=== PATIENT | female | born 1970 | race Caucasian/White ===

== ENCOUNTER → 2017-03-09 | Outpatient (CLI) | payer OTHER ==
[~2017-03-09] MED LIST: 'CLONIDINE0.1 MG PO; ANAPROX DS550 MG PO; ATARAX,VISTARIL50 MG PO; ATIVAN1 MG PO; BACTRIM DS 8001 TA1 PO; BENTYL10 MG PO; CIPRO500 MG PO; CLONIDINE0.2 MG PO; CYMBALTA30 MG PO; DIFLUCAN100 MG PO; DIFLUCAN150 MG PO; DOXYCYCLINE MO100 MG PO; KEFLEX500 MG PO; LATU40TA PO; MIRALAX POWDER17 G1 PO; MOBIC15 MG PO; MOTRIN800 MG PO; NEURONTIN300 MG PO; NKHM; ONDANSETRON HYDR4 M1 PO; PEPCID20 MG PO; PRENATAL1 TA7 PO; SEROQUEL100 MG PO; SEROQUEL200 MG PO; SEROQUEL300 MG PO; SINEMET 25-1001 TA1 PO; SPIRIVA18 MCG PO; TRAZODONE100 MG PO; VALIUM5 MG PO; VENTOLIN H0.09 MG/AC INH; VICODIN 500 MG-1 TAB PO; VICODIN ES 7501 TAB PO; VISTARIL25 M1 PO; VOLTAREN50 M1 PO; XANAX0.25 MG PO; XANAX0.5 MG PO; ZANTAC 150150 MG PO; ZOLOFT100 MG PO; ZOLOFT50 MG PO; [UNRECOGNIZED DRUG - OTHER] PO
== END | disposition home or self-care (01) ==
LOC: RAD 13:24
DX: M48.07 Spinal stenosis, lumbosacral region (principal)

== ENCOUNTER 2017-12-02 20:58 | Emergency (ER) | payer OTHER ==
[~2017-12-02] VITALS: Ht 162.5 cm; Wt 77.1 kg
[2017-12-02] MEDS ORDERED: ANAPROX DS550 MG PO ×2 (22:00→22:14)
== END 2017-12-02 22:05 | disposition home or self-care (01) ==
LOC: ED 20:58
DX: S93.492A Sprain of other ligament of left ankle, initial encounter (principal); Z79.899 Other long term (current) drug therapy; Z90.710 Acquired absence of both cervix and uterus; Z90.89 Acquired absence of other organs; Z98.51 Tubal ligation status; X37.1XXA Tornado, initial encounter; Y93.01 Activity, walking, marching and hiking; Y92.89 Other specified places as the place of occurrence of the external cause; Y99.8 Other external cause status

== ENCOUNTER 2017-12-24 15:13 | Emergency (ER) | payer OTHER ==
[~2017-12-24] VITALS: Ht 162.5 cm; Wt 76.2 kg
[2017-12-24] MEDS ORDERED: ANAPROX DS550 MG PO (15:56)
== END 2017-12-24 16:03 | disposition home or self-care (01) ==
LOC: ED 15:13
DX: S93.402A Sprain of unspecified ligament of left ankle, initial encounter (principal); F17.200 Nicotine dependence, unspecified, uncomplicated; F14.10 Cocaine abuse, uncomplicated; Z90.710 Acquired absence of both cervix and uterus; Z98.51 Tubal ligation status; Z98.890 Other specified postprocedural states; Z79.899 Other long term (current) drug therapy; X50.1XXA Overexertion from prolonged static or awkward postures, initial encounter; Y93.89 Activity, other specified; Y92.89 Other specified places as the place of occurrence of the external cause; Y99.9 Unspecified external cause status

== ENCOUNTER 2018-11-02 23:33 | Emergency (ER) | payer OTHER ==
[~2018-11-02] VITALS: Ht 162.5 cm; Wt 88.5 kg
[2018-11-02] MEDS ORDERED: BUPROPION HCL150 M1 PO (23:56)
[2018-11-02] MEDS ORDERED: DULCOLAX5 M1 PO (23:57)
[2018-11-02] MEDS ORDERED: CLARITIN10 MG PO (23:58)
[2018-11-02] MEDS ORDERED: OMEPRAZOLE20 M2 PO (23:58)
[2018-11-03] MEDS ORDERED: OMNICEF300 MG PO (01:32)
== END 2018-11-03 02:05 | disposition home or self-care (01) ==
LOC: ED 23:33
DX: H66.93 Otitis media, unspecified, bilateral (principal); J32.9 Chronic sinusitis, unspecified; J44.9 Chronic obstructive pulmonary disease, unspecified; G43.909 Migraine, unspecified, not intractable, without status migrainosus; F17.200 Nicotine dependence, unspecified, uncomplicated; Z79.899 Other long term (current) drug therapy

== ENCOUNTER 2019-01-22 22:46 | Emergency (ER) | payer OTHER ==
[~2019-01-22] VITALS: Wt 78.9 kg
--- NOTE | ~2019-01-22 | EKG ---
[place], [place] ELECTROCARDIOGRAM REPORT NAME: ANNIE FUNK UNIT #: [id number] ROOM: DOCTOR: EPIPHANY DRAFT REPORT BIRTHDATE: [birth year] [facility] Test Date: 2019-01-22 Test Time: 23:28:38 Pat Name: ANNIE FUNK Department: ER Room: Gender: F Cigar Tobacco Rehandler: Gregory Roy : 1970 Requested By: PATRICIA SALGADO Order Number: [id number] Reading MD: Jesse Swain Measurements Intervals [place] Rate: 88 P: 68 NM: 158 QRS: 59 QRSD: 93 T: 21 QT: 354 QTc: 429 Interpretive Statements Sinus rhythm Probable left atrial enlargement Low voltage, precordial leads Electronically Signed On 01-23-2019 11:04:37 PDT by Jesse Swain CM:[email or web address]:ELECTROCARDIOGRAM REPORT [id number] PATRICIA SANCHEZ DRAFT REPORT PATRICIA SALGADO DO
[~2019-01-22 22:46] MED LIST changes: +BUPROPION HCL150 M1 PO; +CLARITIN10 MG PO; +DULCOLAX5 M1 PO; +OMEPRAZOLE20 M2 PO; +OMNICEF300 MG PO; +PREDNISONE50 MG PO
[2019-01-22 23:38] LABS: BASO % 0.3 % (0.0-1.0); EOS # 0.2 10*3/uL (0.0-0.4); EOS % 2.1 % (1.0-4.0); HEMATOCRIT 39.3 % (37.0-47.0); HEMOGLOBIN 12.8 g/dl (12.0-16.0); LYMPH % 34.2 % (27.0-41.0); MEAN CELL VOLUME 89.3 fl (81.0-99.0); MEAN CORPUSCULAR HGB 29.1 pg (27.0-31.0); MEAN CORPUSCULAR HGB CONC 32.6 g/dl (33.0-37.0); MONO # 0.8 10*3/uL (0.1-1.0); MONO % 8.7 % (3.0-9.0); NEUT # 4.7 10*3/uL (2.3-7.9); NEUT % 54.4 % (47.0-73.0); PLATELET COUNT AUTOMATED 356 10*3/uL (130-400); WHITE BLOOD COUNT 8.7 10*3/uL (4.8-10.8)
[2019-01-23 00:03] LABS: ALBUMIN 3.8 gm/dl (3.1-4.5); ALKALINE PHOSPHATASE 85 U/L (45-117); BUN 14 mg/dl (7-24); CHLORIDE 106 mmol/L (98-107); CREATININE 1.01 mg/dL (0.55-1.02); POTASSIUM 4.1 mmol/L (3.5-5.1); SGOT/AST 15 IU/L (3-35); SGPT/ALT 21 U/L (12-78); SODIUM 140 mmol/L (136-145); TOTAL PROTEIN 7.9 gm/dL (6.4-8.2)
[2019-01-23 00:04] LABS: BETA-HCG, QUANT < 1.0 mIU/mL (1-3); TROPONIN I < 0.015 ng/ml (<0.045)
[2019-01-23] MEDS ORDERED: KETOROLAC10 MG PO (00:40)
== END 2019-01-23 02:02 | disposition home or self-care (01) ==
LOC: ED 22:46
PROVIDERS: Student in an Organized Health Care Education/Training Program
DX: R09.1 Pleurisy (principal); R11.0 Nausea; J44.9 Chronic obstructive pulmonary disease, unspecified; G43.909 Migraine, unspecified, not intractable, without status migrainosus; Z87.891 Personal history of nicotine dependence; Z79.899 Other long term (current) drug therapy; Z87.09 Personal history of other diseases of the respiratory system

== ENCOUNTER 2019-08-31 05:02 | Inpatient (IN) | payer OTHER ==
[2019-08-31] VITALS (8 sets, daily range): BP systolic 112–154; BP diastolic 76–91
[~2019-08-31] VITALS: Ht 162.6 cm; Wt 72.6 kg
[~2019-08-31 05:02] MED LIST changes: +KETOROLAC10 MG PO
[2019-08-31] MEDS ORDERED: REMERON15 M2 PO (05:05)
[2019-08-31 05:29] LABS: BILIRUBIN NEGATIVE (NEGATIVE); BLOOD NEGATIVE (NEGATIVE); CLARITY CLEAR (CLEAR); COLOR YELLOW (YELLOW); GLUCOSE NEGATIVE (NEGATIVE); KETONE NEGATIVE (NEGATIVE); LEUKO ESTERASE NEGATIVE (NEGATIVE); NITRITE NEGATIVE (NEGATIVE); PH 5.5 (5.0-9.0); UROBILINOGEN 0.2 E.U./dl (0.2-1.0)
[2019-08-31 05:37] LABS: BACTERIA TRACE; RBC 0-2 rbc/hpf (0-2); URINE AMPHETAMINES < 1000 (1000ng/ml); URINE BARBITURATES < 200 (200ng/ml); URINE BENZODIAZEPINES < 200 (200ng/ml); URINE CANNABINOIDS (THC) < 50 (50ng/ml); URINE COCAINE > 300 (300ng/ml); URINE METHADONE < 300 (300ng/ml); URINE OPIATES < 300 (300ng/ml)
[2019-08-31 05:38] LABS: URINE PHENCYCLIDINE < 25 (25ng/ml)
[2019-08-31 05:47] LABS: BASO % 0.4 % (0.0-1.0); EOS # 0.3 10*3/uL (0.0-0.4); EOS % 3.6 % (1.0-4.0); HEMATOCRIT 34.9 % (37.0-47.0); HEMOGLOBIN 11.1 g/dl (12.0-16.0); LYMPH # 2.8 10*3/uL (1.3-4.4); LYMPH % 30.7 % (27.0-41.0); MEAN CELL VOLUME 88.6 fl (81.0-99.0); MEAN CORPUSCULAR HGB 28.2 pg (27.0-31.0); MEAN CORPUSCULAR HGB CONC 31.8 g/dl (33.0-37.0); MEAN PLATELET VOLUME 8.8 fl (9.6-12.3); MONO # 0.8 10*3/uL (0.1-1.0); MONO % 8.3 % (3.0-9.0); NEUT # 5.2 10*3/uL (2.3-7.9); NEUT % 56.7 % (47.0-73.0); PLATELET COUNT AUTOMATED 514 10*3/uL (130-400); RED BLOOD COUNT 3.94 10*6/uL (4.10-5.10); WHITE BLOOD COUNT 9.1 10*3/uL (4.8-10.8)
[2019-08-31 06:03] LABS: ALBUMIN 3.3 gm/dl (3.1-4.5); ALKALINE PHOSPHATASE 85 U/L (45-117); BUN 17 mg/dl (7-24); CHLORIDE 108 mmol/L (98-107); CREATININE 0.83 mg/dL (0.55-1.02); POTASSIUM 4.1 mmol/L (3.5-5.1); SGOT/AST 22 IU/L (3-35); SGPT/ALT 19 U/L (12-78); SODIUM 139 mmol/L (136-145); TOTAL PROTEIN 7.3 gm/dL (6.4-8.2)
--- NOTE | 2019-08-31 06:28 | NUR ---
PHYSICAL THERAPY PT SCREEN COMPLETED TODAY AND PATIENT IS FOUND TO BE UP AD AIXA IN ROOM WITH NO ISSUES REQUIRING PT INTERVENTION. SHE STATES SHE DOES HAVE BACK PAIN BUT DOES NOT WANT OR NEED PT SERVICES. THANK YOU FOR REFERRAL LAURENCE SHIPLEY PT
--- NOTE | 2019-08-31 06:48 | NUR ---
PATIENT AOX4. NO DISTRESS NOTED. STATES PAIN MEDICATION HAS DECREASED PAIN AND RATES THE PAIN AT A 2/10. CALL LIGHT WITHIN REACH. RN WILL CONT TO MONITOR.
--- NOTE | 2019-08-31 07:38 | NUR ---
REPORT RECEIVED AT 0710 FROM JORGE CARMONA. THIS PT IS AWAKE AND ALERT. HER COLOR IS FAIR,SKIN W/D. RESPIRATIONS NON LABORED. SHE HAS NO CO PAIN AT THIS TIME. WILL BE ADMITTED,REPORT TO BE GIVEN. CHRISTOPHE CARMONA
--- NOTE | 2019-08-31 08:00 | NUR ---
Time: 799 A 49 year old FEMALE admitted to 5E under services of HORTENCIA NOE DO. Pt. arrived via stretcher from ER. Chief complaint: RIGHT SIDED BACK PAIN, NUMBNESS TOES. MELBA LILLY
[2019-08-31] MEDS ORDERED: INGREZZA INITI1 EACH PO (08:10)
[2019-08-31] MEDS ORDERED: CLONIDINE HCL0.1 MG PO (08:11)
[2019-08-31] MEDS ORDERED: SEROQUEL400 M1 PO (08:13)
[2019-08-31] MEDS ORDERED: CHANTIX1 M1 PO (08:13)
--- NOTE | 2019-08-31 08:14 | NUR ---
HOME MEDICATION LIST UPDATED WITH PATIENT REVIEW/RECALL
--- NOTE | 2019-08-31 08:16 | NUR ---
DR. MAGUIRE IN TO SEE PATIENT
--- NOTE | 2019-08-31 09:02 | NUR ---
PT ACCIDENTLY PULLED IV OUT. PT OKAY TO WAIT TO RESTART IV UNTIL AFTER SHE EATS BREAKFAST
--- NOTE | 2019-08-31 10:47 | NUR ---
PT STATES BACK PAIN RIGHT LOWER SIDE IS 8/10. REQUESTED PAIN MEDICATION. NORCO GIVEN
--- NOTE | 2019-08-31 10:59 | NUR ---
IV STARTED RIGHT FA #20, GOOD BLOOD RETURN, TOLERATED WELL. STARTED ON FIRST ATTEMPT
--- NOTE | 2019-08-31 11:30 | NUR ---
PT STATES NORCO WAS EFFECTIVE FOR PAIN
--- NOTE | 2019-08-31 15:48 | NUR ---
PT STATES PAIN IN RIGHT LOWER BACK IS UNBEARABLE, MORPHINE GIVEN.
--- NOTE | 2019-08-31 16:20 | NUR ---
MORPHINE EFFECTIVE FOR PAIN "ITS STILL THERE, BUT I CAN HANDLE IT"
--- NOTE | 2019-08-31 18:11 | NUR ---
PT STATES PAIN 5-6 RIGHT LOWER BACK, NORCO GIVEN
--- NOTE | 2019-08-31 21:06 | NUR ---
PT MEDICATED WITH PRN MORPHINE FOR C/O PAIN RATED A 10/10. WILL MONITOR FOR EFFECTIVENESS.
--- NOTE | 2019-08-31 22:30 | NUR ---
PT RESTING COMFORTABLY AT THIS TIME. PRN MORPHINE EFFECTIVE. WILL CONTINUE TO MONITOR.
[2019-09-01] VITALS: BP 113/73
--- NOTE | 2019-09-01 02:22 | NUR ---
PT MEDICATED WITH PRN NORCO FOR C/O BACK PAIN RATED A 9/10. WILL CONTINUE TO MONITOR.
--- NOTE | 2019-09-01 03:15 | NUR ---
PT ASLEEP AT THIS TIME. NO S/S OF DISTRESS. PRN NORCO EFFECTIVE.
--- NOTE | 2019-09-01 03:40 | NUR ---
PT REQUESTING PAIN MEDICATION AT THIS TIME. UPON ENTERING PATIENTS ROOM SHE IS FOUND TO BE SLEEPING. WILL CONTINUE TO MONITOR.
--- NOTE | 2019-09-01 04:31 | NUR ---
PT RESTING IN BED AT THIS TIME. NO S/S OF DISTRESS NOTED HOWEVER PATIENT STATES SHE IS IN SEVERE PAIN AND IS REQUESTING PRN MORPHINE. MEDICATION ADMINISTERED PER ORDER. WILL MONITOR FOR EFFECTIVENESS.
[2019-09-01 06:15] LABS: BASO % 0.2 % (0.0-1.0); EOS % 0.1 % (1.0-4.0); HEMATOCRIT 33.9 % (37.0-47.0); HEMOGLOBIN 10.7 g/dl (12.0-16.0); LYMPH % 14.2 % (27.0-41.0); MEAN CORPUSCULAR HGB 28.1 pg (27.0-31.0); MEAN CORPUSCULAR HGB CONC 31.6 g/dl (33.0-37.0); MEAN PLATELET VOLUME 9.3 fl (9.6-12.3); MONO # 0.8 10*3/uL (0.1-1.0); MONO % 5.7 % (3.0-9.0); NEUT % 79.4 % (47.0-73.0); PLATELET COUNT AUTOMATED 479 10*3/uL (130-400); RED BLOOD COUNT 3.81 10*6/uL (4.10-5.10); WHITE BLOOD COUNT 13.9 10*3/uL (4.8-10.8)
[2019-09-01 06:28] LABS: BUN 17 mg/dl (7-24); CHLORIDE 104 mmol/L (98-107); CHOLESTEROL 206 mg/dL (<200); CREATININE 0.79 mg/dL (0.55-1.02); HDL CHOLESTEROL 66 mg/dl (40-60); LDL CHOLESTEROL 114 mg/dL (9-159); PHOSPHOROUS 3.6 mg/dL (2.5-4.9); POTASSIUM 4.2 mmol/L (3.5-5.1); SODIUM 138 mmol/L (136-145); TRIGLYCERIDES 132 mg/dl (<150); VLDL CHOLESTEROL 26 mg/dL (6-40)
[2019-09-01 07:12] LABS: ACT PARTIAL THROMBO TIME 25.4 SECONDS (20.0-32.1); INTERNATIONAL NORM RATIO 0.9 (2.0-3.5)
[2019-09-01 08:00] VITALS: BP 133/76
[2019-09-01 08:37] LABS: VITAMIN D, 25-HYDROXY 33.1 ng/mL (30-100)
--- NOTE | 2019-09-01 09:52 | NUR ---
PT SATES PAIN RIGHT SIDE OF BACK/LEG, 05/25. NORCO GIVEN
[2019-09-01 11:47] VITALS: BP 138/87
--- NOTE | 2019-09-01 15:44 | NUR ---
PT COMPLAIN OF RIGHT LOWER BACK PAIN 05/25, NORCO GIVEN
[2019-09-01 15:46] VITALS: BP 130/77
[2019-09-01 20:00] VITALS: BP 129/80
--- NOTE | 2019-09-01 21:41 | NUR ---
PRN NORCO GIVEN FOR PT COMPLAINTS OF RIGHT LEG PAIN RATING IT 9/10. PATIENT ROLLING AROUND IN BED. STATING HOW MUCH PAIN SHE IS IN. BUT STATES THAT SHE DOESNT WANT ANY MORE OF THE MORPHINE. CALL LIGHT WITHIN REACH, WILL MONITOR
--- NOTE | 2019-09-01 22:29 | NUR ---
KPAD OFFERED AFTER REMOVAL OF LIDOCAINE PATCH. PATIENT REFUSED
[2019-09-02] VITALS: BP 110/59
--- NOTE | 2019-09-02 00:25 | NUR ---
24 HR chart check completed.
--- NOTE | 2019-09-02 03:53 | NUR ---
PRBN NORCO GIVEN FOR PT COMPLAINTS OF PAIN DOWN THE RIGHT LEG RATING IT 9/10. CALL LIGHT WITHIN REACH, WILL MONITOR
[2019-09-02 08:00] VITALS: BP 135/84
--- NOTE | 2019-09-02 09:00 | NUR ---
Leadership Development Manager in to talk to patient. Patient states lives at home with friend. There are few steps in the home. Physician: [facility]acy: [facility] Home health services: none Patient's level of ADLs: INDEPENDENT Patient has working utilities: all working DME: none Follow-up physician's appointment after d/c: will be made by hospitalist nurse director upon discharge Does patient want to access PORTAL?: no Discharge plan discussed with patient, she states she lives at home with a friend, is independent in adls and ambulation, drives, she states she will return home when medically stable and denies any home needs. TESS EVANS
--- NOTE | 2019-09-02 10:24 | NUR ---
PT MEDICATED PER ORDER WITH NORCO FOR 9/10 PAIN IN BACK AND R LEG FOR PAIN. WILL MONITOR EFFECTIVENESS
[2019-09-02] MEDS ORDERED: PREDNISONE10 MG PO (11:04)
[2019-09-02] MEDS ORDERED: CYCLOBENZAPRINE10 MG PO (11:04)
[2019-09-02] MEDS ORDERED: Lidoderm 5% Patch T (11:04)
[2019-09-02] MEDS ORDERED: BISACODYL LAXATI5 MG PO (11:04)
[2019-09-02] MEDS ORDERED: HYDROCODONE-AC1 EAC1 PO (11:05)
[2019-09-02 11:53] VITALS: BP 111/73
--- NOTE | 2019-09-02 13:35 | NUR ---
heplock discontinued. DISCHARGE INSTRUCTIONS REVIEWED. PT AMBULATED OFF THE FLOOR. PRESCRIPTIONS DISCUSSED.
== END 2019-09-02 13:36 | disposition home or self-care (01) | DRG 347 ==
LOC: ED 05:02 → EDHOLD 07:25 → 5E 07:25
PROVIDERS: Emergency Medicine Emergency Medical Services; Student in an Organized Health Care Education/Training Program; ADMIT Family Medicine
DX: M48.061 Spinal stenosis, lumbar region without neurogenic claudication (principal); F19.90 Other psychoactive substance use, unspecified, uncomplicated; D64.9 Anemia, unspecified; F14.10 Cocaine abuse, uncomplicated; E44.0 Moderate protein-calorie malnutrition; G89.29 Other chronic pain; D47.3 Essential (hemorrhagic) thrombocythemia; E87.8 Other disorders of electrolyte and fluid balance, not elsewhere classified; J44.9 Chronic obstructive pulmonary disease, unspecified; F10.10 Alcohol abuse, uncomplicated; K59.00 Constipation, unspecified; F31.9 Bipolar disorder, unspecified; F41.9 Anxiety disorder, unspecified; F43.10 Post-traumatic stress disorder, unspecified; F42.9 Obsessive-compulsive disorder, unspecified; Z90.710 Acquired absence of both cervix and uterus; Z71.6 Tobacco abuse counseling; Z98.51 Tubal ligation status; Z81.1 Family history of alcohol abuse and dependence; Z82.49 Family history of ischemic heart disease and other diseases of the circulatory system; Z81.8 Family history of other mental and behavioral disorders; Z80.3 Family history of malignant neoplasm of breast; Z80.41 Family history of malignant neoplasm of ovary; Z68.26 Body mass index [BMI] 26.0-26.9, adult

== ENCOUNTER 2019-09-27 11:52 | Inpatient (IN) | payer OTHER ==
[~2019-09-27] VITALS: Ht 162.6 cm; Wt 75.1 kg
[2019-09-27 11:52] VITALS: BP 130/70
[~2019-09-27 11:52] MED LIST changes: +BISACODYL LAXATI5 MG PO; +CHANTIX1 M1 PO; +CLONIDINE HCL0.1 MG PO; +CYCLOBENZAPRINE10 MG PO; +HYDROCODONE-AC1 EAC1 PO; +INGREZZA INITI1 EACH PO; +Lidoderm 5% Patch T; +PREDNISONE10 MG PO; +REMERON15 M2 PO; +SEROQUEL400 M1 PO
--- NOTE | 2019-09-27 12:07 | NUR ---
O2 DECREASED TO 2L NC. POX [phone]%.
[2019-09-27 12:11] LABS: BASO # 0.1 10*3/uL (0.0-0.1); BASO % 0.3 % (0.0-1.0); EOS # 1.4 10*3/uL (0.0-0.4); EOS % 8.3 % (1.0-4.0); HEMATOCRIT 27.5 % (37.0-47.0); HEMOGLOBIN 8.8 g/dl (12.0-16.0); LYMPH # 1.8 10*3/uL (1.3-4.4); LYMPH % 10.4 % (27.0-41.0); MEAN CELL VOLUME 88.1 fl (81.0-99.0); MEAN CORPUSCULAR HGB 28.2 pg (27.0-31.0); MEAN PLATELET VOLUME 8.7 fl (9.6-12.3); MONO # 0.8 10*3/uL (0.1-1.0); MONO % 4.7 % (3.0-9.0); NEUT # 12.8 10*3/uL (2.3-7.9); NEUT % 75.9 % (47.0-73.0); NUCLEATED RED BLOOD CELL 0.1 % (0.0-0.0); PLATELET COUNT AUTOMATED 830 10*3/uL (130-400); RED BLOOD COUNT 3.12 10*6/uL (4.10-5.10); RED CELL DISTRI WIDTH 15.4 % (0-14.5); WHITE BLOOD COUNT 16.9 10*3/uL (4.8-10.8)
[2019-09-27 12:21] LABS: ACT PARTIAL THROMBO TIME 27.6 SECONDS (20.0-32.1); INTERNATIONAL NORM RATIO 0.9 (2.0-3.5)
[2019-09-27 12:27] LABS: ALBUMIN 2.1 gm/dl (3.1-4.5); ALKALINE PHOSPHATASE 114 U/L (45-117); BUN 11 mg/dl (7-24); CHLORIDE 102 mmol/L (98-107); CREATININE 0.69 mg/dL (0.55-1.02); POTASSIUM 3.5 mmol/L (3.5-5.1); SGOT/AST 28 IU/L (3-35); SGPT/ALT 21 U/L (12-78); SODIUM 136 mmol/L (136-145); TOTAL PROTEIN 6.9 gm/dL (6.4-8.2)
[2019-09-27 12:29] LABS: TROPONIN I < 0.015 ng/ml (<0.045)
[2019-09-27 12:51] LABS: ABG BASE EXCESS 4.3 mmol/L (-2.0-2.0); ARTERIAL BLOOD GAS PH 7.433 (7.35-7.45)
[2019-09-27 13:00] VITALS: BP 139/68
[2019-09-27 14:00] VITALS: BP 129/64
[2019-09-27 14:04] VITALS: BP 142/74
--- NOTE | 2019-09-27 14:04 | NUR ---
A 49, admitted to , under the services of SEFERINO Null DO with a diagnosis of COPD EXACERBATION, CHEST PAIN. Chief complaint is SOB, CHEST PAIN. Patient arrived via ambulatory from ER. Monitor applied. Initial assessment completed. Vital signs taken and recorded. SEFERINO NULL DO notified of admission to the unit. Orders received. See assessment for past medical history, medications and allergies. Patient and/or family oriented to unit. [facility] visitation policy reviewed. Clothing/patient valuable form completed. JOHN PAUL JOEL
[2019-09-27 14:22] VITALS: BP 142/74
[2019-09-27] MEDS ORDERED: IBU800 M1 PO (14:30)
--- NOTE | 2019-09-27 14:33 | NUR ---
MED REC UPDATED WITH PT AT BEDSIDE.
--- NOTE | 2019-09-27 15:22 | NUR ---
IN TO SEE PT.
[2019-09-27 15:47] LABS: BILIRUBIN NEGATIVE (NEGATIVE); BLOOD NEGATIVE (NEGATIVE); CLARITY CLEAR (CLEAR); COLOR STRAW (YELLOW); GLUCOSE NEGATIVE (NEGATIVE); KETONE NEGATIVE (NEGATIVE); LEUKO ESTERASE NEGATIVE (NEGATIVE); NITRITE NEGATIVE (NEGATIVE); PH 5.5 (5.0-9.0); SPECIFIC GRAVITY <= 1.005 (1.005-1.030); UROBILINOGEN 0.2 E.U./dl (0.2-1.0)
[2019-09-27 15:52] LABS: URINE AMPHETAMINES < 1000 (1000ng/ml); URINE BARBITURATES < 200 (200ng/ml); URINE BENZODIAZEPINES < 200 (200ng/ml); URINE CANNABINOIDS (THC) < 50 (50ng/ml); URINE COCAINE > 300 (300ng/ml); URINE METHADONE < 300 (300ng/ml); URINE OPIATES < 300 (300ng/ml)
[2019-09-27 15:54] LABS: URINE PHENCYCLIDINE < 25 (25ng/ml)
[2019-09-27 16:03] LABS: BACTERIA TRACE
--- NOTE | 2019-09-27 17:07 | NUR ---
TYLENOL GIVEN FOR C/O GENERALIZED BODY ACHES. WILL MONITOR.
--- NOTE | 2019-09-27 19:20 | NUR ---
ARRIVED ON SHIFT, INTRODUCED TO PATIENT, WHITE BOARD UPDATED, NO NEEDS VOICED AT THIS TIME.
[2019-09-27 20:00] VITALS: BP 140/79
--- NOTE | 2019-09-27 20:06 | NUR ---
24 HR chart check completed.
[2019-09-28] VITALS: BP 113/57
[2019-09-28 07:34] LABS: BASO % 0.3 % (0.0-1.0); EOS # 1.3 10*3/uL (0.0-0.4); EOS % 8.8 % (1.0-4.0); HEMATOCRIT 27.6 % (37.0-47.0); HEMOGLOBIN 8.6 g/dl (12.0-16.0); LYMPH # 1.5 10*3/uL (1.3-4.4); LYMPH % 9.8 % (27.0-41.0); MEAN CELL VOLUME 89.3 fl (81.0-99.0); MEAN CORPUSCULAR HGB 27.8 pg (27.0-31.0); MEAN CORPUSCULAR HGB CONC 31.2 g/dl (33.0-37.0); MEAN PLATELET VOLUME 8.7 fl (9.6-12.3); MONO # 0.9 10*3/uL (0.1-1.0); MONO % 5.9 % (3.0-9.0); NEUT # 11.2 10*3/uL (2.3-7.9); NEUT % 74.5 % (47.0-73.0); PLATELET COUNT AUTOMATED 914 10*3/uL (130-400); RED BLOOD COUNT 3.09 10*6/uL (4.10-5.10); RED CELL DISTRI WIDTH 15.9 % (0-14.5)
[2019-09-28 08:00] VITALS: BP 118/64
[2019-09-28 08:04] LABS: BUN 6 mg/dl (7-24); CHLORIDE 105 mmol/L (98-107); CHOLESTEROL 175 mg/dL (<200); CREATININE 0.75 mg/dL (0.55-1.02); PHOSPHOROUS 2.9 mg/dL (2.5-4.9); POTASSIUM 3.6 mmol/L (3.5-5.1); SGOT/AST 29 IU/L (3-35); SGPT/ALT 18 U/L (12-78); SODIUM 140 mmol/L (136-145); TOTAL PROTEIN 6.6 gm/dL (6.4-8.2); TRIGLYCERIDES 134 mg/dl (<150); VLDL CHOLESTEROL 27 mg/dL (6-40)
[2019-09-28 08:11] LABS: ALKALINE PHOSPHATASE 101 U/L (45-117); FREE T4 0.65 ng/dl (0.76-1.46); HDL CHOLESTEROL 31 mg/dl (40-60); LDL CHOLESTEROL 117 mg/dL (9-159)
[2019-09-28 08:38] LABS: VITAMIN D, 25-HYDROXY 25.6 ng/mL (30-100)
--- NOTE | 2019-09-28 10:45 | NUR ---
DR DEAN ON UNIT AND NOTIFIED OF CONSULT
[2019-09-28 12:00] VITALS: BP 126/71
[2019-09-28 16:00] VITALS: BP 138/76
--- NOTE | 2019-09-28 19:00 | NUR ---
ARRIVED ON SHIFT, INTRODUCED TO PATIENT, NO NEEDS VOICED AT THIS TIME, WHITE BOARD UPDATED.
[2019-09-28 20:00] VITALS: BP 130/65
--- NOTE | 2019-09-28 20:07 | NUR ---
PATIENT C/O GENERALIED DISCOMFORT, MEDICATED WITH IBUPRIFEN ORDERED.
--- NOTE | 2019-09-28 21:07 | NUR ---
PATIENT OBTAINED GOOD RELIEF FROM IBUPROFEN GIVEM X 1 HOUR AGO.
--- NOTE | 2019-09-28 21:21 | NUR ---
PATIENT HAVING INCREASED ANXIETY, MEDICATED WITH LORAZEPAM ORDERED PRN.
--- NOTE | 2019-09-28 22:21 | NUR ---
GOOD EFFECT FROM LORAZEPAM GIVEN X 1 HOUR AGO.
--- NOTE | 2019-09-28 22:56 | NUR ---
24 HR chart check completed.
[2019-09-29] VITALS: BP 99/52
--- NOTE | 2019-09-29 02:00 | NUR ---
Patient sleeping. Respirations relaxed and easy. Siderails up X2. Wheellocks on, bed in low position, call light within reach. SNEHA YA
[2019-09-29 08:00] VITALS: BP 118/64
[2019-09-29 08:10] LABS: HEMATOCRIT 27.3 % (37.0-47.0); HEMOGLOBIN 8.6 g/dl (12.0-16.0); MEAN CELL VOLUME 88.9 fl (81.0-99.0); MEAN CORPUSCULAR HGB CONC 31.5 g/dl (33.0-37.0); MEAN PLATELET VOLUME 8.7 fl (9.6-12.3); PLATELET COUNT AUTOMATED 968 10*3/uL (130-400); RED BLOOD COUNT 3.07 10*6/uL (4.10-5.10); RED CELL DISTRI WIDTH 15.8 % (0-14.5)
[2019-09-29 08:25] LABS: ALBUMIN 2.1 gm/dl (3.1-4.5); ALKALINE PHOSPHATASE 96 U/L (45-117); BUN 9 mg/dl (7-24); CHLORIDE 106 mmol/L (98-107); CREATININE 0.67 mg/dL (0.55-1.02); IRON 22 ug/dL (50-170); POTASSIUM 3.7 mmol/L (3.5-5.1); SGOT/AST 25 IU/L (3-35); SGPT/ALT 17 U/L (12-78); SODIUM 140 mmol/L (136-145); TOTAL IRON BINDING CAPACITY 222 ug/dl (250-450); TOTAL PROTEIN 7.1 gm/dL (6.4-8.2)
[2019-09-29 08:51] LABS: TOTAL CELLS COUNTED 100 #CELLS
[2019-09-29 08:52] LABS: PLATELET SUFFICIENCY HIGH (NORMAL); POLYCHROMASIA SLIGHT
[2019-09-29 08:53] LABS: TOXIC GRANULATION SLIGHT
[2019-09-29 12:00] VITALS: BP 119/62
[2019-09-29 16:00] VITALS: BP 124/77
[2019-09-29 20:00] VITALS: BP 124/66
--- NOTE | 2019-09-29 20:23 | NUR ---
PT DENIES ANY NEEDS AT THIS TIME. O2 IN USE VIA 3L NC. WILL MONITOR CALL LIGHT IN REACH.
[2019-09-29 23:05] VITALS: BP 113/65
--- NOTE | 2019-09-29 23:15 | NUR ---
PT MEDICATED WITH PO ATIVAN PER PRN ORDER FOR C/O ANXIETY. PT STATES EARLIER RESTORIL IS BEGINNING TO WORK, STATES SHE FEELS TIRED. HOWEVER, SHE IS STILL HAVING SOME ANXIETY. WILL MONITOR EFFECTIVENESS. IV ABX INFUSING PER ORDER. CALL LIGHT IN REACH.
[2019-09-30] VITALS (10 sets, daily range): BP systolic 118–145; BP diastolic 58–83
--- NOTE | 2019-09-30 02:51 | NUR ---
IV VANC INFUSION INITIATED PER ORDER. PT DENIES ANY NEEDS AT PRESENT TIME. WILL MONITOR. CALL LIGHT IN REACH.
--- NOTE | 2019-09-30 04:33 | NUR ---
PT DENIES ANY NEEDS AT PRESENT TIME.
--- NOTE | 2019-09-30 06:09 | NUR ---
PT TRANSFERRED TO [facility] AT THIS TIME. ROOM 517. ALL BELONGINGS GATHERED AND SENT WITH PT.
--- NOTE | 2019-09-30 06:13 | NUR ---
REPORT GIVEN TO 5 EAST RN. WILL CALL FULL REPORT TO AM SHIFT RN AT SHIFT CHANGE.
[2019-09-30 06:16] LABS: BASO # 0.1 10*3/uL (0.0-0.1); BASO % 0.3 % (0.0-1.0); EOS # 0.2 10*3/uL (0.0-0.4); EOS % 0.9 % (1.0-4.0); HEMATOCRIT 25.1 % (37.0-47.0); HEMOGLOBIN 7.7 g/dl (12.0-16.0); LYMPH # 2.7 10*3/uL (1.3-4.4); LYMPH % 16.4 % (27.0-41.0); MEAN CORPUSCULAR HGB 27.6 pg (27.0-31.0); MEAN CORPUSCULAR HGB CONC 30.7 g/dl (33.0-37.0); MEAN PLATELET VOLUME 8.7 fl (9.6-12.3); MONO # 1.1 10*3/uL (0.1-1.0); MONO % 6.8 % (3.0-9.0); NEUT # 12.2 10*3/uL (2.3-7.9); NEUT % 74.6 % (47.0-73.0); PLATELET COUNT AUTOMATED 975 10*3/uL (130-400); RED BLOOD COUNT 2.79 10*6/uL (4.10-5.10); WHITE BLOOD COUNT 16.3 10*3/uL (4.8-10.8)
[2019-09-30 06:34] LABS: ALKALINE PHOSPHATASE 88 U/L (45-117); BUN 14 mg/dl (7-24); CHLORIDE 109 mmol/L (98-107); CREATININE 0.69 mg/dL (0.55-1.02); SGOT/AST 29 IU/L (3-35); SGPT/ALT 31 U/L (12-78); SODIUM 142 mmol/L (136-145); TOTAL PROTEIN 6.4 gm/dL (6.4-8.2)
--- NOTE | 2019-09-30 07:05 | NUR ---
PT TAKEN TO ULTRASOUND VIA CART. CONDITION STABLE. MELISSA PARRISH SPNRCC
--- NOTE | 2019-09-30 07:05 | NUR ---
PT TAKEN TO ECHOCARDIOGRAM VIA CART. CONDITION STABLE. MELISSA PARRISH SPNRCC
--- NOTE | 2019-09-30 07:25 | NUR ---
REPORT GIVEN TO SHIRLENE CARMONA
--- NOTE | 2019-09-30 07:30 | NUR ---
patient going for bronoscopy. will try for echo again later.
--- NOTE | 2019-09-30 07:30 | NUR ---
VS STABLE- A&O X3, LAUREL, COLOR IS PINK, SKIN WARM DRY AND INTACT, CAPILLARY REFILL <3 SECONDS, SKIN TURGOR IS NON-TENTING, LUNG SOUNDS DIMINISHED WITH EXPIRATORY WHEEZE, RESPIRATION 18, PO2 97% ON 3L OF NASAL CANNULA, HEART SOUNDS NORMAL 92 BP, ABDOMEN SOFT NON-TENDER NON-DISTENDED, BS X4, IV SITE IN RIGHT AC INTACT NO S/S OF INFECTION, NO COMPLAINTS OF PAIN, PT PLEASANT COOPERATIVE, NO FURTHER COMPLAINTS WILL CONTINUE TO ASSESS. MELISSA PARRISH SPNRCC
--- NOTE | 2019-09-30 07:30 | NUR ---
PT RETURNED FROM ULTRASOUND CONDITION STABLE. MELISSA PARRISH SPNRCC
--- NOTE | 2019-09-30 07:55 | NUR ---
PATIENT ON FLOOR WITH NO C/O OR S/S OF DISTRESS NOTED AT THIS TIME. BED IS LOW, LOCKED, AND CALL LIGHT IS WITHIN REACH. WILL CONTINUE TO MONITOR.
--- NOTE | 2019-09-30 08:21 | NUR ---
PT TAKEN TO BRONCHOSCOPY VIA BED. CONDITION STABLE. MELISSA PARRISH SPNRCC
--- NOTE | 2019-09-30 10:34 | NUR ---
PT BACK ON FLOOR FROM SURGERY AT THIS TIME.
--- NOTE | 2019-09-30 10:34 | NUR ---
VS STABLE- NO STRIDOR NOTED. LUNG SOUNDS DIMINISHED WITH EXPIRATORY WHEEZE. PO2 97% ON R/A, SKIN WARM DRY AND INTACT, A&O X3, NO COMPLAINTS AT THIS TIME WILL CONTINUE TO ASSESS. MELISSA PARRISH SPMATTHEWCC
--- NOTE | 2019-09-30 10:40 | NUR ---
PT OUT OF ROOM FOR BRONCH. WILL REVISIT.
--- NOTE | 2019-09-30 11:08 | NUR ---
MOTRIN 600 MG GIVEN PO PER REQUEST. PT STATES "HEADACHE AND SORE THROAT". RATED 4/10 ON PAIN SCALE. MELISSA PARRISH SPMATTHEW[facility]
--- NOTE | 2019-09-30 11:34 | NUR ---
ATIVAN 0.5MG PO GIVEN FOR ANXIETY. WILL CONTINUE TO ASSESS. KHOA SANTIAGO SPMATTHEWCC
[2019-09-30 12:00] LABS: BF LYMPHOCYTES 6 %; BF MACROPHAGES 85 %; BF NEUTROPHILS 4 %
--- NOTE | 2019-09-30 12:00 | NUR ---
MOTRIN AND ATIVAN AFFECTIVE. PATIENT RESTING IN BED WITH EYES CLOSED. RESPIRATION EASY. WILL CONTINUE TO ASSESS. MELISSA PARRISH [facility].
--- NOTE | 2019-09-30 16:36 | NUR ---
Cardiopulmonary Technologist in to talk to patient. Patient states lives at HOME with BOYFRIEND. There are OUTSIDE steps in the home. Physician: BRENT CORONEL Pharmacy: [facility] [place] health services: NONE Patient's level of ADLs: INDEPENDENT Patient has working utilities: YES DME: NONBE Follow-up physician's appointment after d/c: WILL BE MADE BY HOSPITALIST NURSE DIRECTOR ON DISCHARGE Does patient want to access PORTAL?: NO Discharge plan PT LIVES AT HOME WITH HER BOYFRIEND. PLANS TO RETURN HOME ON DISCHARGE WITH NO NEW NEEDS. WILL CONTINUE TO FOLLOW. WILL HAVE A RIDE HOME.. MARGARITA GARCIA
--- NOTE | 2019-09-30 20:20 | NUR ---
[facility] contacted and informed of patient request for "antacid". new orders received
--- NOTE | 2019-09-30 20:45 | NUR ---
24 HR chart check completed.
--- NOTE | 2019-09-30 21:00 | NUR ---
RESTING IN BED. RESPIRATIONS EASY. LUNGS DIMINISHED. PULSE OX 99% 2.5L. CLAIMS PROD COUGH, REMINDED OF NEED FOR SPUTUM SPECIMEN. CALL LIGHT WITHIN REACH. NO VOICED COMPLAINTS
--- NOTE | 2019-09-30 22:17 | NUR ---
REQUESTED AND RECEIVED TUMS PER PRN ORDER FOR INDIGESTION, FLEXERIL FOR MUSCLE PAIN, AND RESTORIL TO ASSIST WITH SLEEP. CALL LIGHT WITHIN REACH. WILL MONITOR
--- NOTE | 2019-09-30 23:00 | NUR ---
MEDS EFFECTIVE. SLEEPING
[2019-10-01] VITALS: BP 106/55
--- NOTE | 2019-10-01 | NUR ---
SLEEPING. UPON AWAKENING, REQUESTED AND RECEIVED ATIVAN PER PRN ORDER. CALL LIGHT WITHIN REACH. WILL MONITOR
--- NOTE | 2019-10-01 01:30 | NUR ---
MEDS EFFECTIVE. SLEEPING
--- NOTE | 2019-10-01 06:00 | NUR ---
SLEPT THROUGHOUT NIGHT WITH NO DISTRESS NOTED. RESPIRATIONS EASY. O2 TITRATED TO 1.5L, PULSE OX 95%. CALL LIGHT WITHIN REACH.
[2019-10-01 06:22] LABS: HEMATOCRIT 26.2 % (37.0-47.0); HEMOGLOBIN 8.2 g/dl (12.0-16.0); MEAN CELL VOLUME 88.8 fl (81.0-99.0); MEAN CORPUSCULAR HGB 27.8 pg (27.0-31.0); MEAN CORPUSCULAR HGB CONC 31.3 g/dl (33.0-37.0); MEAN PLATELET VOLUME 8.5 fl (9.6-12.3); NUCLEATED RED BLOOD CELL 0.1 % (0.0-0.0); RED BLOOD COUNT 2.95 10*6/uL (4.10-5.10); RED CELL DISTRI WIDTH 15.8 % (0-14.5); WHITE BLOOD COUNT 14.8 10*3/uL (4.8-10.8)
[2019-10-01 06:34] LABS: PLATELET COUNT AUTOMATED 1205 10*3/uL (130-400)
--- NOTE | 2019-10-01 06:35 | NUR ---
DR GAYTAN CONTACTED AND INFORMED OF CRITICAL PLATELETS, INCREASING SINCE ADMISSION
[2019-10-01 06:55] LABS: BUN 14 mg/dl (7-24); CHLORIDE 106 mmol/L (98-107); POTASSIUM 3.8 mmol/L (3.5-5.1); SODIUM 139 mmol/L (136-145)
[2019-10-01 07:00] LABS: CREATININE 0.75 mg/dL (0.55-1.02)
[2019-10-01 07:11] LABS: BASOPHILS 3 % (0-1); PLATELET SUFFICIENCY HIGH (NORMAL); TARGET CELLS FEW; TOTAL CELLS COUNTED 100 #CELLS
[2019-10-01 07:12] LABS: POLYCHROMASIA SLIGHT; ROULEAUX SLIGHT; SCHISTOCYTES FEW
[2019-10-01 07:13] LABS: TOXIC GRANULATION SLIGHT
[2019-10-01 08:00] VITALS: BP 113/58
[2019-10-01 12:00] VITALS: BP 126/54
--- NOTE | 2019-10-01 14:02 | NUR ---
PER DR PARTIDA IN [place] MEETING TODAY, PT NEEDS TRANSFERRED TO ANOTHER FACILITY DUE TO ELEVATED PLATLETS. WILL CONTINUE TO FOLLOW.
[2019-10-01] MEDS ORDERED: LEVAQUIN750 M1 PO (14:29)
[2019-10-01] MEDS ORDERED: PREDNISONE10 MG PO (14:29)
[2019-10-01 16:00] VITALS: BP 119/69
--- NOTE | 2019-10-01 17:44 | NUR ---
REPORT WAS GIVEN TO RECEIVING NURSE AT THE [facility]ICAL [facility]ENTER.
--- NOTE | 2019-10-01 17:50 | NUR ---
REPORT GIVEN TO RECEIVING NURSE @ [facility]
[2019-10-01 18:53] LABS: ACID FAST SPEC PROCESSING Concentration (.)
--- NOTE | 2019-10-01 19:50 | NUR ---
PATIENT IS RESTING IN BED WITH EASY AND REGULAR RESPERS ON ROOM AIR. ASSESSMENT IS COMPLETE WITH NO C/O OR S/S OF DISTRESS NOTED AT THIS TIME. BED IS LOW, LOCKED, AND CALL LIGHT IS WITHIN REACH. WILL CONTINUE TO MONITOR SEE SHIFT ASSESSMENT.
--- NOTE | 2019-10-01 20:22 | NUR ---
PATIENT OF FLOOR VIA [facility].
[2019-10-01 22:05] LABS: ADENOVIRUS Negative (Negative); INFLUENZA A Negative (Negative); INFLUENZA B Negative (Negative); METAPNEUMOVIRUS Negative (Negative); PARAINFLUENZA 1 Negative (Negative); PARAINFLUENZA 2 Negative (Negative); PARAINFLUENZA 3 Negative (Negative); RHINOVIRUS Negative (Negative); RSV A Negative (Negative); RSV B Negative (Negative)
== END 2019-10-01 20:22 | disposition short-term general hospital (02) | DRG 720 ==
LOC: ED 11:52 → 5E 12:56 → EDHOLD 12:56 → 4E 13:06 → 5E 09-30 06:04
PROVIDERS: Emergency Medicine; Internal Medicine; Internal Medicine Critical Care Medicine; ADMIT Emergency Medicine
PROC: 0B9F8ZX Drainage of Right Lower Lung Lobe, Via Natural or Artificial Opening Endoscopic, Diagnostic (ICD-10-PCS; principal; 2019-09-30)
PROC: 0B9J8ZZ Drainage of Left Lower Lung Lobe, Via Natural or Artificial Opening Endoscopic (ICD-10-PCS; 2019-09-30)
PROC: 0B918ZZ Drainage of Trachea, Via Natural or Artificial Opening Endoscopic (ICD-10-PCS; 2019-09-30)
PROC: 0B9F8ZZ Drainage of Right Lower Lung Lobe, Via Natural or Artificial Opening Endoscopic (ICD-10-PCS; 2019-09-30)
DX: A41.9 Sepsis, unspecified organism (principal); R65.20 Severe sepsis without septic shock; J18.9 Pneumonia, unspecified organism; J96.01 Acute respiratory failure with hypoxia; F14.10 Cocaine abuse, uncomplicated; F10.10 Alcohol abuse, uncomplicated; E43 Unspecified severe protein-calorie malnutrition; D50.8 Other iron deficiency anemias; I50.9 Heart failure, unspecified; E55.9 Vitamin D deficiency, unspecified; F31.9 Bipolar disorder, unspecified; G89.29 Other chronic pain; M54.9 Dorsalgia, unspecified; F43.10 Post-traumatic stress disorder, unspecified; F42.9 Obsessive-compulsive disorder, unspecified; F17.210 Nicotine dependence, cigarettes, uncomplicated; D47.3 Essential (hemorrhagic) thrombocythemia; D55.9 Anemia due to enzyme disorder, unspecified; J44.1 Chronic obstructive pulmonary disease with (acute) exacerbation; G43.909 Migraine, unspecified, not intractable, without status migrainosus; F41.1 Generalized anxiety disorder; Z68.28 Body mass index [BMI] 28.0-28.9, adult; Z71.6 Tobacco abuse counseling; Z98.51 Tubal ligation status; Z90.710 Acquired absence of both cervix and uterus; Z80.3 Family history of malignant neoplasm of breast; Z80.41 Family history of malignant neoplasm of ovary; Z80.8 Family history of malignant neoplasm of other organs or systems; Z82.49 Family history of ischemic heart disease and other diseases of the circulatory system; Z81.8 Family history of other mental and behavioral disorders; Z81.1 Family history of alcohol abuse and dependence; Z81.3 Family history of other psychoactive substance abuse and dependence; Z79.899 Other long term (current) drug therapy

== ENCOUNTER 2019-11-16 12:06 | Emergency (ER) | payer OTHER ==
[~2019-11-16] VITALS: Ht 162.5 cm; Wt 86.2 kg
[~2019-11-16 12:06] MED LIST changes: +IBU800 M1 PO; +LEVAQUIN750 M1 PO
[2019-11-16 12:55] LABS: BASO # 0.1 10*3/uL (0.0-0.1); BASO % 0.6 % (0.0-1.0); EOS # 0.1 10*3/uL (0.0-0.4); HEMATOCRIT 35.7 % (37.0-47.0); HEMOGLOBIN 11.2 g/dl (12.0-16.0); LYMPH # 2.3 10*3/uL (1.3-4.4); LYMPH % 27.8 % (27.0-41.0); MEAN CELL VOLUME 90.6 fl (81.0-99.0); MEAN CORPUSCULAR HGB 28.4 pg (27.0-31.0); MEAN CORPUSCULAR HGB CONC 31.4 g/dl (33.0-37.0); MEAN PLATELET VOLUME 9.1 fl (9.6-12.3); MONO % 11.6 % (3.0-9.0); NEUT # 4.8 10*3/uL (2.3-7.9); NEUT % 58.6 % (47.0-73.0); PLATELET COUNT AUTOMATED 388 10*3/uL (130-400); RED BLOOD COUNT 3.94 10*6/uL (4.10-5.10); RED CELL DISTRI WIDTH 18.2 % (0-14.5); WHITE BLOOD COUNT 8.2 10*3/uL (4.8-10.8)
[2019-11-16 13:10] LABS: ACT PARTIAL THROMBO TIME 24.9 SECONDS (20.0-32.1); INTERNATIONAL NORM RATIO 0.9 (2.0-3.5)
[2019-11-16 13:11] LABS: ALBUMIN 3.9 gm/dl (3.1-4.5); ALKALINE PHOSPHATASE 67 U/L (45-117); BUN 15 mg/dl (7-24); CHLORIDE 107 mmol/L (98-107); CREATININE 0.77 mg/dL (0.55-1.02); POTASSIUM 4.2 mmol/L (3.5-5.1); SGOT/AST 27 IU/L (3-35); SGPT/ALT 42 U/L (12-78); SODIUM 137 mmol/L (136-145); TOTAL PROTEIN 7.5 gm/dL (6.4-8.2)
[2019-11-16] MEDS ORDERED: LYRICA50 M1 PO (13:51)
== END 2019-11-16 13:54 | disposition home or self-care (01) ==
LOC: ED 12:06
PROVIDERS: Emergency Medicine
DX: R20.0 Anesthesia of skin (principal); R20.2 Paresthesia of skin; R20.8 Other disturbances of skin sensation; G43.909 Migraine, unspecified, not intractable, without status migrainosus; J44.9 Chronic obstructive pulmonary disease, unspecified; G89.29 Other chronic pain; I50.9 Heart failure, unspecified; Z79.899 Other long term (current) drug therapy; Z79.2 Long term (current) use of antibiotics; Z87.891 Personal history of nicotine dependence; Z90.710 Acquired absence of both cervix and uterus

== ENCOUNTER → 2019-12-13 | Outpatient (CLI) | payer OTHER ==
[~2019-12-13] MED LIST changes: +LYRICA50 M1 PO
[2019-12-13 15:54] LABS: BASO % 0.5 % (0.0-1.0); EOS # 0.2 10*3/uL (0.0-0.4); EOS % 3.1 % (1.0-4.0); HEMATOCRIT 35.1 % (37.0-47.0); LYMPH # 2.2 10*3/uL (1.3-4.4); LYMPH % 34.1 % (27.0-41.0); MEAN CELL VOLUME 89.8 fl (81.0-99.0); MEAN CORPUSCULAR HGB 28.1 pg (27.0-31.0); MEAN CORPUSCULAR HGB CONC 31.3 g/dl (33.0-37.0); MEAN PLATELET VOLUME 9.5 fl (9.6-12.3); MONO # 0.7 10*3/uL (0.1-1.0); MONO % 11.1 % (3.0-9.0); NEUT # 3.3 10*3/uL (2.3-7.9); PLATELET COUNT AUTOMATED 399 10*3/uL (130-400); RED BLOOD COUNT 3.91 10*6/uL (4.10-5.10); RED CELL DISTRI WIDTH 15.6 % (0-14.5); WHITE BLOOD COUNT 6.4 10*3/uL (4.8-10.8)
[2019-12-13 16:22] LABS: ALBUMIN 3.7 gm/dl (3.1-4.5); ALKALINE PHOSPHATASE 81 U/L (45-117); BILIRUBIN, DIRECT < 0.1 mg/dL (0.0-0.2); BUN 13 mg/dl (7-24); CHLORIDE 105 mmol/L (98-107); CPK 134 U/L (26-192); CREATININE 0.89 mg/dL (0.55-1.02); POTASSIUM 4.1 mmol/L (3.5-5.1); SGOT/AST 24 IU/L (3-35); SGPT/ALT 35 U/L (12-78); SODIUM 138 mmol/L (136-145); TOTAL PROTEIN 7.6 gm/dL (6.4-8.2)
[2019-12-13 17:12] LABS: VITAMIN D, 25-HYDROXY 40.9 ng/mL (30-100)
[2019-12-14 05:04] LABS: RHEUMATOID ARTHRITIS FACTOR <10.0 IU/mL (0.0-13.9); TOTAL PROTEIN, SERUM 7.1 g/dL (6.0-8.5)
[2019-12-16 13:06] LABS: A/G RATIO 1.2 (0.7-1.7); ALBUMIN 3.8 g/dL (2.9-4.4); ALPHA-1-GLOBULIN 0.3 g/dL (0.0-0.4); ALPHA-2-GLOBULIN 0.7 g/dL (0.4-1.0); BETA GLOBULIN 1.1 g/dL (0.7-1.3); GAMMA GLOBULIN 1.2 g/dL (0.4-1.8); GLOBULIN, TOTAL 3.3 g/dL (2.2-3.9); M-SPIKE Not Observed g/dL (Not Observed)
[2019-12-16 14:08] LABS: ALDOLASE 002030 6.2 U/L (3.3-10.3); SJOGREN ANTI-SS-A <0.2 AI (0.0-0.9); SJOREN AB, ANTI-SS-B <0.2 AI (0.0-0.9)
[2019-12-18 11:07] LABS: METHYLMALONIC ACID 141 nmol/L (0-378)
== END | disposition home or self-care (01) ==
LOC: LAB 15:02
PROVIDERS: Psychiatry & Neurology Clinical Neurophysiology
DX: M99.01 Segmental and somatic dysfunction of cervical region (principal); M79.601 Pain in right arm; M79.602 Pain in left arm; R20.2 Paresthesia of skin; M79.2 Neuralgia and neuritis, unspecified

== ENCOUNTER 2019-12-17 10:16 | Emergency (ER) | payer OTHER ==
[2019-12-17 11:44] LABS: BASO # 0.1 10*3/uL (0.0-0.1); BASO % 0.6 % (0.0-1.0); EOS # 0.2 10*3/uL (0.0-0.4); EOS % 2.8 % (1.0-4.0); HEMATOCRIT 32.1 % (37.0-47.0); HEMOGLOBIN 10.2 g/dl (12.0-16.0); MEAN CELL VOLUME 88.4 fl (81.0-99.0); MEAN CORPUSCULAR HGB 28.1 pg (27.0-31.0); MEAN CORPUSCULAR HGB CONC 31.8 g/dl (33.0-37.0); MEAN PLATELET VOLUME 9.2 fl (9.6-12.3); MONO # 0.9 10*3/uL (0.1-1.0); MONO % 10.6 % (3.0-9.0); NEUT # 5.2 10*3/uL (2.3-7.9); NEUT % 61.6 % (47.0-73.0); PLATELET COUNT AUTOMATED 337 10*3/uL (130-400); RED BLOOD COUNT 3.63 10*6/uL (4.10-5.10); RED CELL DISTRI WIDTH 14.8 % (0-14.5); WHITE BLOOD COUNT 8.5 10*3/uL (4.8-10.8)
[2019-12-17 11:59] LABS: ALBUMIN 3.2 gm/dl (3.1-4.5); ALKALINE PHOSPHATASE 68 U/L (45-117); BUN 13 mg/dl (7-24); CHLORIDE 108 mmol/L (98-107); CREATININE 1.03 mg/dL (0.55-1.02); POTASSIUM 3.8 mmol/L (3.5-5.1); SGOT/AST 28 IU/L (3-35); SGPT/ALT 35 U/L (12-78); SODIUM 141 mmol/L (136-145); TOTAL PROTEIN 6.6 gm/dL (6.4-8.2)
== END 2019-12-17 14:36 | disposition home or self-care (01) ==
LOC: ED 10:16
PROVIDERS: Internal Medicine
DX: R60.0 Localized edema (principal); R20.0 Anesthesia of skin; R20.2 Paresthesia of skin; M79.641 Pain in right hand; M79.642 Pain in left hand; G89.29 Other chronic pain; J44.9 Chronic obstructive pulmonary disease, unspecified; G43.909 Migraine, unspecified, not intractable, without status migrainosus; I50.9 Heart failure, unspecified; Z87.891 Personal history of nicotine dependence; Z79.2 Long term (current) use of antibiotics; Z79.899 Other long term (current) drug therapy; Z90.710 Acquired absence of both cervix and uterus

== ENCOUNTER 2019-12-21 19:18 | Emergency (ER) | payer OTHER ==
[~2019-12-21] VITALS: Ht 165.1 cm; Wt 93.0 kg
[2019-12-21] MEDS ORDERED: LYRICA75 M1 PO (20:20)
[2019-12-21] MEDS ORDERED: Orphenadrine C100 MG PO (21:15)
== END 2019-12-21 21:01 | disposition home or self-care (01) ==
LOC: ED 19:18
DX: G54.2 Cervical root disorders, not elsewhere classified (principal); F41.9 Anxiety disorder, unspecified; F31.9 Bipolar disorder, unspecified; I50.9 Heart failure, unspecified; J44.9 Chronic obstructive pulmonary disease, unspecified; G43.909 Migraine, unspecified, not intractable, without status migrainosus; Z79.899 Other long term (current) drug therapy; Z79.2 Long term (current) use of antibiotics; Z90.710 Acquired absence of both cervix and uterus

== ENCOUNTER 2020-01-06 21:04 | Emergency (ER) | payer OTHER ==
[~2020-01-06] VITALS: Ht 165.1 cm; Wt 93.0 kg
[~2020-01-06 21:04] MED LIST changes: +LYRICA75 M1 PO; +Orphenadrine C100 MG PO
[2020-01-06 22:11] LABS: BASO # 0.1 10*3/uL (0.0-0.1); BASO % 0.9 % (0.0-1.0); EOS # 0.2 10*3/uL (0.0-0.4); EOS % 3.4 % (1.0-4.0); HEMATOCRIT 37.8 % (37.0-47.0); HEMOGLOBIN 12.1 g/dl (12.0-16.0); LYMPH # 2.4 10*3/uL (1.3-4.4); LYMPH % 40.3 % (27.0-41.0); MEAN CELL VOLUME 88.5 fl (81.0-99.0); MEAN CORPUSCULAR HGB 28.3 pg (27.0-31.0); MEAN PLATELET VOLUME 10.2 fl (9.6-12.3); MONO # 0.7 10*3/uL (0.1-1.0); MONO % 11.1 % (3.0-9.0); NEUT # 2.6 10*3/uL (2.3-7.9); PLATELET COUNT AUTOMATED 322 10*3/uL (130-400); RED BLOOD COUNT 4.27 10*6/uL (4.10-5.10); RED CELL DISTRI WIDTH 13.9 % (0-14.5); WHITE BLOOD COUNT 5.8 10*3/uL (4.8-10.8)
[2020-01-06 22:21] LABS: ALKALINE PHOSPHATASE 94 U/L (45-117); BUN 14 mg/dl (7-24); CHLORIDE 104 mmol/L (98-107); CREATININE 0.98 mg/dL (0.55-1.02); SGOT/AST 25 IU/L (3-35); SGPT/ALT 32 U/L (12-78); SODIUM 136 mmol/L (136-145); TOTAL PROTEIN 7.7 gm/dL (6.4-8.2)
[2020-01-06] MEDS ORDERED: CEPHALEXIN500 M1 PO (23:58)
== END 2020-01-07 00:30 | disposition home or self-care (01) ==
LOC: ED 21:04
PROVIDERS: Nurse Practitioner Family
DX: K59.00 Constipation, unspecified (principal); T81.30XA Disruption of wound, unspecified, initial encounter; J44.9 Chronic obstructive pulmonary disease, unspecified; G43.909 Migraine, unspecified, not intractable, without status migrainosus; F31.9 Bipolar disorder, unspecified; I50.9 Heart failure, unspecified; Z79.899 Other long term (current) drug therapy; Y92.89 Other specified places as the place of occurrence of the external cause; Z87.891 Personal history of nicotine dependence

== ENCOUNTER 2020-01-23 14:33 | Emergency (ER) | payer OTHER ==
[~2020-01-23] VITALS: Ht 162.5 cm; Wt 95.3 kg
[~2020-01-23 14:33] MED LIST changes: +CEPHALEXIN500 M1 PO
[2020-01-23] MEDS ORDERED: PREDNISONE50 MG PO (15:18)
[2020-01-23] MEDS ORDERED: LYRICA75 M1 PO (15:18)
== END 2020-01-23 15:37 | disposition home or self-care (01) ==
LOC: ED 14:33
DX: G56.03 Carpal tunnel syndrome, bilateral upper limbs (principal); J44.9 Chronic obstructive pulmonary disease, unspecified; F17.210 Nicotine dependence, cigarettes, uncomplicated; Z79.899 Other long term (current) drug therapy; Z79.2 Long term (current) use of antibiotics; Z90.710 Acquired absence of both cervix and uterus

== ENCOUNTER → 2020-02-13 | Outpatient (CLI) | payer OTHER | END | disposition home or self-care (01) | LOC: CARD 12:48 | DX: I34.0 Nonrheumatic mitral (valve) insufficiency (principal); I51.7 Cardiomegaly; R00.2 Palpitations ==

== ENCOUNTER → 2021-01-01 | Outpatient (CLI) | payer OTHER | END | disposition home or self-care (01) | LOC: RAD 09:47 | PROVIDERS: ATTEND Obstetrics & Gynecology | DX: R32 Unspecified urinary incontinence (principal) ==

== ENCOUNTER 2021-01-13 21:56 | Emergency (ER) | payer OTHER | END 2021-01-14 03:52 | disposition left against medical advice (07) | LOC: ED 21:56 | DX: M54.2 Cervicalgia (principal); F41.9 Anxiety disorder, unspecified; F31.9 Bipolar disorder, unspecified; I50.9 Heart failure, unspecified; J44.9 Chronic obstructive pulmonary disease, unspecified; G43.909 Migraine, unspecified, not intractable, without status migrainosus; Z98.890 Other specified postprocedural states; Z79.899 Other long term (current) drug therapy; Z98.51 Tubal ligation status ==

== ENCOUNTER → 2021-04-07 | Outpatient (CLI) | payer OTHER ==
[2021-04-07 09:28] LABS: BILIRUBIN Negative (Negative); BLOOD Negative (Negative); CLARITY Clear (Clear); COLOR Yellow (Yellow); GLUCOSE Negative (Negative); KETONE Negative (Negative); LEUKO ESTERASE Negative (Negative); NITRITE Negative (Negative); PH 5.5 (4.5-8.0)
[2021-04-07 09:47] LABS: BACTERIA 1+
== END | disposition home or self-care (01) ==
LOC: LAB 09:03
PROVIDERS: ATTEND Nurse Practitioner Family
DX: R35.0 Frequency of micturition (principal)

== ENCOUNTER → 2021-10-14 | Outpatient (CLI) | payer OTHER ==
[2021-10-14 13:49] LABS: BILIRUBIN Negative (Negative); BLOOD Negative (Negative); CLARITY Clear (Clear); COLOR Yellow (Yellow); GLUCOSE Negative (Negative); KETONE Negative (Negative); LEUKO ESTERASE Negative (Negative); NITRITE Negative (Negative); SPECIFIC GRAVITY 1.015 (1.001-1.030)
[2021-10-14 14:23] LABS: BACTERIA 2+; YEAST 1+
== END | disposition home or self-care (01) ==
LOC: LAB 13:07
PROVIDERS: ATTEND Nurse Practitioner Family
DX: R32 Unspecified urinary incontinence (principal)

== ENCOUNTER → 2021-12-07 | Outpatient (CLI) | payer OTHER | END | disposition home or self-care (01) | LOC: RAD 12:47 | PROVIDERS: ATTEND Nurse Practitioner Family | DX: M25.512 Pain in left shoulder (principal) ==

== ENCOUNTER → 2022-02-25 | Outpatient (CLI) | payer OTHER | END | disposition home or self-care (01) | LOC: MRI 09:59 | PROVIDERS: ATTEND Nurse Practitioner Family | DX: M19.012 Primary osteoarthritis, left shoulder (principal); M75.52 Bursitis of left shoulder ==

== ENCOUNTER 2022-03-14 09:40 | Emergency (ER) | payer OTHER ==
[~2022-03-14] VITALS: Wt 102.1 kg
[2022-03-14] MEDS ORDERED: OMEPRAZOLE40 MG PO (10:05)
[2022-03-14] MEDS ORDERED: ESTRADIOL1 MG PO (10:05)
[2022-03-14] MEDS ORDERED: RISPERIDONE3 M2 PO (10:06)
[2022-03-14] MEDS ORDERED: GABAPENTIN600 MG PO (10:06)
[2022-03-14] MEDS ORDERED: DIAZEPAM5 MG PO (10:06)
[2022-03-14] MEDS ORDERED: CARBAMAZEPINE200 MG PO (10:06)
[2022-03-14] MEDS ORDERED: ETODOLAC400 M2 PO (10:07)
[2022-03-14] MEDS ORDERED: GOOD NEIGHBOR L10 MG PO (10:07)
[2022-03-14] MEDS ORDERED: OXYBUTYNIN CHLOR5 M1 PO (10:07)
[2022-03-14] MEDS ORDERED: TYLENOL325 M1 PO (10:40)
[2022-03-14] MEDS ORDERED: NAPROXEN250 MG PO (10:40)
[2022-03-14] MEDS ORDERED: CHLORASEPTIC MA30 ML MM (10:48)
== END 2022-03-14 11:00 | disposition home or self-care (01) ==
LOC: ED 09:40
DX: J02.9 Acute pharyngitis, unspecified (principal); Z20.822 Contact with and (suspected) exposure to COVID-19; I50.9 Heart failure, unspecified; J44.9 Chronic obstructive pulmonary disease, unspecified; Z79.899 Other long term (current) drug therapy; Z98.51 Tubal ligation status; Z90.710 Acquired absence of both cervix and uterus; Z90.89 Acquired absence of other organs; Z98.890 Other specified postprocedural states

== ENCOUNTER 2022-07-10 16:52 | Emergency (ER) | payer OTHER ==
[~2022-07-10] VITALS: Ht 162.5 cm; Wt 104.8 kg
[~2022-07-10 16:52] MED LIST changes: +CARBAMAZEPINE200 MG PO; +CHLORASEPTIC MA30 ML MM; +DIAZEPAM5 MG PO; +ESTRADIOL1 MG PO; +ETODOLAC400 M2 PO; +GABAPENTIN600 MG PO; +GOOD NEIGHBOR L10 MG PO; +NAPROXEN250 MG PO; +OMEPRAZOLE40 MG PO; +OXYBUTYNIN CHLOR5 M1 PO; +RISPERIDONE3 M2 PO; +TYLENOL325 M1 PO
[2022-07-10 17:20] LABS: BASO % 0.4 % (0.0-1.0); EOS # 0.1 10*3/uL (0.0-0.4); EOS % 1.4 % (1.0-4.0); HEMATOCRIT 37.1 % (37.0-47.0); LYMPH # 2.7 10*3/uL (1.3-4.4); MEAN CELL VOLUME 87.9 fl (81.0-99.0); MEAN CORPUSCULAR HGB 29.4 pg (27.0-31.0); MEAN CORPUSCULAR HGB CONC 33.4 g/dl (33.0-37.0); MEAN PLATELET VOLUME 9.2 fl (9.6-12.3); MONO # 0.7 10*3/uL (0.1-1.0); MONO % 9.5 % (3.0-9.0); NEUT # 3.7 10*3/uL (2.3-7.9); NEUT % 51.4 % (47.0-73.0); PLATELET COUNT AUTOMATED 312 10*3/uL (130-400); RED BLOOD COUNT 4.22 10*6/uL (4.10-5.10); RED CELL DISTRI WIDTH 12.3 % (0-14.5); WHITE BLOOD COUNT 7.2 10*3/uL (4.8-10.8)
[2022-07-10 17:35] LABS: ACT PARTIAL THROMBO TIME 27.1 SECONDS (20.0-32.1); INTERNATIONAL NORM RATIO 0.9 (2.0-3.5)
[2022-07-10 17:46] LABS: ALKALINE PHOSPHATASE 95 U/L (45-117); BUN 11 mg/dl (7-24); CREATININE 0.79 mg/dL (0.55-1.02); SGPT/ALT 24 U/L (12-78); TOTAL PROTEIN 7.7 gm/dL (6.4-8.2)
[2022-07-10 17:55] LABS: CHLORIDE 106 mmol/L (98-107); POTASSIUM 3.6 mmol/L (3.5-5.1); SGOT/AST 17 IU/L (3-35); SODIUM 138 mmol/L (136-145)
== END 2022-07-10 19:16 | disposition home or self-care (01) ==
LOC: ED 16:52
PROVIDERS: Nurse Practitioner Family
DX: R07.9 Chest pain, unspecified (principal); Z79.899 Other long term (current) drug therapy; Z87.891 Personal history of nicotine dependence; Z98.51 Tubal ligation status; Z90.710 Acquired absence of both cervix and uterus; Z90.89 Acquired absence of other organs

== ENCOUNTER → 2023-01-18 | Outpatient (CLI) | payer OTHER | LOC: MAMMO 02:27 | PROVIDERS: ATTEND Obstetrics & Gynecology | DX: Z12.31 Encounter for screening mammogram for malignant neoplasm of breast (principal); Z01.419 Encounter for gynecological examination (general) (routine) without abnormal findings ==

== ENCOUNTER 2023-06-19 15:19 | Emergency (ER) | payer OTHER ==
[~2023-06-19] VITALS: Ht 162.5 cm; Wt 91.6 kg
[2023-06-19 15:56] LABS: BASO % 0.4 % (0.0-1.0); EOS # 0.1 10*3/uL (0.0-0.4); EOS % 0.6 % (1.0-4.0); LYMPH # 2.2 10*3/uL (1.3-4.4); LYMPH % 26.4 % (27.0-41.0); MEAN CELL VOLUME 87.2 fl (81.0-99.0); MEAN CORPUSCULAR HGB 29.7 pg (27.0-31.0); MEAN CORPUSCULAR HGB CONC 34.1 g/dl (33.0-37.0); MEAN PLATELET VOLUME 9.2 fl (9.6-12.3); MONO # 0.8 10*3/uL (0.1-1.0); MONO % 9.8 % (3.0-9.0); NEUT # 5.2 10*3/uL (2.3-7.9); NEUT % 62.4 % (47.0-73.0); PLATELET COUNT AUTOMATED 328 10*3/uL (130-400); RED CELL DISTRI WIDTH 12.5 % (0-14.5); WHITE BLOOD COUNT 8.3 10*3/uL (4.8-10.8)
[2023-06-19 16:14] LABS: ACT PARTIAL THROMBO TIME 27.9 SECONDS (20.0-32.1); INTERNATIONAL NORM RATIO 0.9 (2.0-3.5)
[2023-06-19] MEDS ORDERED: ATORVASTATIN CA20 M1 PO (16:19)
[2023-06-19] MEDS ORDERED: PRAZOSIN HYDROCH1 MG PO (16:19)
[2023-06-19 16:22] LABS: ALKALINE PHOSPHATASE 81 U/L (46-116); BUN 5 mg/dl (9-23); CHLORIDE 98 mmol/L (98-107); LIPASE 38 U/L (12-53); POTASSIUM 3.2 mmol/L (3.4-5.1); SGPT/ALT 28 U/L (10-49); TOTAL PROTEIN 7.1 gm/dL (6.0-8.0)
[2023-06-19 16:26] LABS: ETHYL ALCOHOL < 3.0 mg/dl (<3)
[2023-06-19 17:55] LABS: BILIRUBIN Negative (Negative); BLOOD Negative (Negative); CLARITY Clear (Clear); COLOR Yellow (Yellow); GLUCOSE Negative (Negative); KETONE Negative (Negative); LEUKO ESTERASE Trace (Negative); NITRITE Negative (Negative); PH 6.5 (4.5-8.0); SPECIFIC GRAVITY <= 1.005 (1.001-1.030); UROBILINOGEN 0.2 E.U./dl (0.0-1.0)
[2023-06-19 18:02] LABS: URINE AMPHETAMINES Negative (1000ng/ml); URINE BARBITURATES Negative (200ng/ml); URINE BENZODIAZEPINES Negative (200ng/ml); URINE CANNABINOIDS (THC) Negative (50ng/ml); URINE COCAINE Positive (300ng/ml); URINE METHADONE Negative (300ng/ml); URINE OPIATES Negative (300ng/ml); URINE PHENCYCLIDINE Negative (25ng/ml)
[2023-06-19 18:38] LABS: BACTERIA TRACE; RBC 0-2 rbc/hpf (0-2)
== END 2023-06-19 18:50 | disposition left against medical advice (07) ==
LOC: ED 15:19
PROVIDERS: Emergency Medicine
DX: F14.10 Cocaine abuse, uncomplicated (principal); R00.0 Tachycardia, unspecified; F17.210 Nicotine dependence, cigarettes, uncomplicated; Z79.899 Other long term (current) drug therapy; Z98.51 Tubal ligation status; Z90.711 Acquired absence of uterus with remaining cervical stump; Z90.89 Acquired absence of other organs; Z90.710 Acquired absence of both cervix and uterus

== ENCOUNTER 2023-11-17 09:43 | Emergency (ER) | payer OTHER ==
[~2023-11-17] VITALS: Ht 162.5 cm; Wt 65.3 kg
[~2023-11-17 09:43] MED LIST changes: +ATORVASTATIN CA20 M1 PO; +PRAZOSIN HYDROCH1 MG PO
== END 2023-11-17 11:01 | disposition home or self-care (01) ==
LOC: ED 09:43
DX: S00.511A Abrasion of lip, initial encounter (principal); S09.8XXA Other specified injuries of head, initial encounter; M25.561 Pain in right knee; F41.9 Anxiety disorder, unspecified; F31.9 Bipolar disorder, unspecified; I50.9 Heart failure, unspecified; J44.9 Chronic obstructive pulmonary disease, unspecified; F19.10 Other psychoactive substance abuse, uncomplicated; F10.10 Alcohol abuse, uncomplicated; F14.10 Cocaine abuse, uncomplicated; F17.200 Nicotine dependence, unspecified, uncomplicated; Z98.51 Tubal ligation status; Z90.710 Acquired absence of both cervix and uterus; Z90.89 Acquired absence of other organs; Z98.890 Other specified postprocedural states; V89.2XXA Person injured in unspecified motor-vehicle accident, traffic, initial encounter; Y93.89 Activity, other specified; Y92.410 Unspecified street and highway as the place of occurrence of the external cause; Y99.8 Other external cause status

== ENCOUNTER 2024-06-01 11:24 | Emergency (ER) | payer OTHER ==
[~2024-06-01] VITALS: Ht 162.5 cm; Wt 86.2 kg
[2024-06-01] MEDS ORDERED: IBUPROFEN 800 MG TAB PO ONE (11:55)
== END 2024-06-01 12:42 | disposition home or self-care (01) ==
LOC: ED 11:24
DX: S92.511A Displaced fracture of proximal phalanx of right lesser toe(s), initial encounter for closed fracture (principal); S83.92XA Sprain of unspecified site of left knee, initial encounter; F41.9 Anxiety disorder, unspecified; J44.9 Chronic obstructive pulmonary disease, unspecified; F31.9 Bipolar disorder, unspecified; F19.10 Other psychoactive substance abuse, uncomplicated; F10.10 Alcohol abuse, uncomplicated; F14.10 Cocaine abuse, uncomplicated; F17.200 Nicotine dependence, unspecified, uncomplicated; Z98.890 Other specified postprocedural states; Z98.51 Tubal ligation status; Z90.710 Acquired absence of both cervix and uterus; Z90.89 Acquired absence of other organs; W22.8XXA Striking against or struck by other objects, initial encounter; Y93.89 Activity, other specified; Y92.009 Unspecified place in unspecified non-institutional (private) residence as the place of occurrence of the external cause; Y99.8 Other external cause status